=== PATIENT | male | born 1960 | race Caucasian/White ===

== ENCOUNTER 2017-12-11 13:49 | Emergency (ER) | payer OTHER ==
[2017-12-11] MEDS: IBUPROFEN 600 MG TAB PO (15:31)
== END 2017-12-11 16:27 | disposition home or self-care (01) ==
LOC: E/R 13:49 → FTE 16:27
DX: T16.1XXA Foreign body in right ear, initial encounter (principal); X58.XXXA Exposure to other specified factors, initial encounter; Y92.9 Unspecified place or not applicable
CPT/HCPCS: 69200; 93971; 99283-25

== ENCOUNTER 2018-04-02 11:45 | Emergency (ER) | payer OTHER ==
[2018-04-02] MEDS: OPHTHALMIC IRRIG SOLUTION 120 ML RIGHT EYE (12:23)
[2018-04-02] MEDS: FLUORESCEIN STRIP RIGHT EYE (12:24)
== END 2018-04-02 12:34 | disposition home or self-care (01) ==
LOC: FTE 11:45
DX: T54.91XA Toxic effect of unspecified corrosive substance, accidental (unintentional), initial encounter (principal)
CPT/HCPCS: 99282; Z7502

== ENCOUNTER 2018-04-14 11:03 | Emergency (ER) | payer OTHER ==
[2018-04-14 15:50] LABS: ADD MAN DIFF? NO
[2018-04-14 15:52] LABS: BASOPHILS % 0.8 % (0.0-2.0); EOSINOPHILS # 0.1 10^3/ul (0.0-0.5); EOSINOPHILS % 1.1 % (0.0-7.0); HEMATOCRIT 45.7 % (42.0-52.0); HEMOGLOBIN 15.1 g/dl (14.0-18.0); LYMPHOCYTES # 2.3 10^3/ul (0.8-2.9); MEAN CORPUSCULAR HEMOGLOBIN 30.1 pg (29.0-33.0); MEAN CORPUSCULAR VOLUME 91.2 fl (82.0-101.0); MEAN PLATELET VOLUME 11.1 fl (7.4-10.4); MONOCYTE # 0.4 10^3/ul (0.3-0.9); MONOCYTES % 8.1 % (0.0-11.0); NEUTROPHIL # 2.5 10^3/ul (1.6-7.5); NEUTROPHILS % 46.6 % (39.0-77.0); PLATELET COUNT 235 10^3/UL (140-415); RED BLOOD COUNT 5.01 10^6/ul (4.70-6.10); RED CELL DISTRIBUTION WIDTH 13.8 % (11.5-14.5)
[2018-04-14 15:52] LABS: WHITE BLOOD COUNT 5.3 10^3/ul (4.8-10.8)
[2018-04-14 16:01] LABS: INR 0.95; PARTIAL THROMBOPLASTIN TIME 27.9 Sec (25.0-35.0); PROTIME 12.8 Sec (11.9-14.9)
[2018-04-14 16:03] LABS: ALANINE AMINOTRANSFERASE 34 IU/L (13-69); ALBUMIN 4.4 g/dl (3.3-4.9); ALBUMIN/GLOBULIN RATIO 1.29; ALKALINE PHOSPHATASE 77 IU/L (42-121); ANION GAP 15 (8-16); ASPARTATE AMINO TRANSFERASE 30 IU/L (15-46); BILIRUBIN,INDIRECT 0.7 mg/dl (0-1.1); BILIRUBIN,TOTAL 0.7 mg/dl (0.2-1.3); BLOOD UREA NITROGEN 20 mg/dl (7-20); CALCIUM 9.3 mg/dl (8.4-10.2); CARBON DIOXIDE 28 mmol/L (21-31); CHLORIDE 103 mmol/L (97-110); CREATININE 0.87 mg/dl (0.61-1.24); GLUCOSE 113 mg/dl (70-220); LIPASE 119 U/L (23-300); POTASSIUM 4.5 mmol/L (3.5-5.1); SODIUM 141 mmol/L (135-144); TOTAL PROTEIN 7.8 g/dl (6.1-8.1)
[2018-04-14 16:14] LABS: TROPONIN-I < 0.010 ng/ml (0.000-0.120)
[2018-04-14] MEDS: ONDANSETRON 4 MG INJ IV (16:14)
[2018-04-14] MEDS: morphine 4 MG/ML VIAL IV (16:15)
[2018-04-14 16:55] LABS: ADD UMIC NO; UR AMORPHOUS CRYSTAL MANY /HPF (NONE SEEN); UR ASCORBIC ACID NEGATIVE (NEGATIVE); UR BACTERIA FEW /HPF (NONE SEEN); UR BILIRUBIN (Dip) NEGATIVE (NEGATIVE); UR BLOOD (Dip) NEGATIVE (NEGATIVE); UR CLARITY SLIGHTLY CLOUDY (CLEAR); UR COLOR YELLOW (YELLOW); UR GLUCOSE (Dip) NEGATIVE (NEGATIVE); UR KETONES (Dip) NEGATIVE (NEGATIVE); UR LEUKOCYTE ESTERASE (Dip) NEGATIVE Leu/ul (NEGATIVE); UR NITRITE (Dip) NEGATIVE (NEGATIVE); UR RBC 1 /HPF (0-5); UR TOTAL PROTEIN (Dip) NEGATIVE (NEGATIVE); UR UROBILINOGEN (Dip) NEGATIVE (NEGATIVE); UR WBC 1 /HPF (0-5)
== END 2018-04-15 06:45 | disposition home or self-care (01) ==
LOC: E/R 04-15 06:45
DX: K40.90 Unilateral inguinal hernia, without obstruction or gangrene, not specified as recurrent (principal)
CPT/HCPCS: 36415; 71045; 74176; 80053; 81001; 81003; 83690; 84484; 85025; 85610; 85730; 93005; 96374; 96375; 99285-25

== ENCOUNTER → 2018-04-14 23:31 | Emergency (ER) | payer SELFPAY, OTHER | END | disposition left against medical advice (07) | LOC: E/R 23:31 | DX: Z53.21 Procedure and treatment not carried out due to patient leaving prior to being seen by health care provider (principal) ==

== ENCOUNTER 2018-05-13 14:29 | Emergency (ER) | payer OTHER ==
[2018-05-13] MEDS: DIPHTH/TET/ACEL PERTUSS (ADULT) 0.5 ML VIAL IM* (17:13)
== END 2018-05-13 19:06 | disposition left against medical advice (07) ==
LOC: FTE 19:06
DX: S61.431A Puncture wound without foreign body of right hand, initial encounter (principal); W54.0XXA Bitten by dog, initial encounter; Y92.830 Public park as the place of occurrence of the external cause; Z23 Encounter for immunization
CPT/HCPCS: 73130; 73130-RT; 90471; 90715; 99283-25

== ENCOUNTER 2018-05-23 06:23 | Day surgery (SDC) | payer OTHER ==
[~2018-05-23 06:23] MED LIST: CEFAZOLIN 2 GM/50 ML (PMX) 50 ML IVPB
[2018-05-23] MEDS ORDERED: PROPOFOL 200 MG INJ (07:00)
[2018-05-23] MEDS ORDERED: ALBUTEROL 0.083% (NEB) 2.5 MG/3 ML AMP HHN (07:30)
[2018-05-23] MEDS ORDERED: FENTAnyl 50 MCG/ML VIAL IV ×3 (07:30)
[2018-05-23] MEDS ORDERED: HYDROmorphONE 1 MG/5 ML IV SYRINGE IV ×2 (07:30)
[2018-05-23] MEDS ORDERED: METOCLOPRAMIDE 10 MG INJ IV (07:30)
[2018-05-23] MEDS ORDERED: DIPHENHYDRAMINE 50 MG INJ IV (07:30)
[2018-05-23] MEDS ORDERED: MEPERIDINE 25 MG INJ IV (07:30)
[2018-05-23] MEDS: POLYMYXIN/BACITRACIN 1L IRRIG (07:36)
[2018-05-23] MEDS ORDERED: LIDOCAINE 100 MG SYRINGE (08:11)
[2018-05-23] MEDS ORDERED: SUCCINYLCHOLINE CHLORIDE 100 MG/5 ML SYG IV (08:11)
[2018-05-23] MEDS ORDERED: FENTAnyl 50 MCG/ML VIAL (08:11)
[2018-05-23] MEDS ORDERED: CEFAZOLIN 1 GM INJ (08:11)
[2018-05-23] MEDS ORDERED: SUGAMMADEX SODIUM 200 MG/2 ML VIAL IV (08:11)
[2018-05-23] MEDS ORDERED: ROCURONIUM 50 MG INJ (08:11)
[2018-05-23] MEDS ORDERED: ROPIVACAINE 0.5 % 30 ML VIAL (08:29)
[2018-05-23] MEDS: BUPIVACAINE 0.25%/EPI (SDV) 30 ML INJ (09:33)
[2018-05-23] MEDS ORDERED: ONDANSETRON 4 MG INJ IV (10:00)
[2018-05-23] MEDS ORDERED: morphine 2 MG INJ IV (10:00)
[2018-05-23] MEDS ORDERED: IBUPROFEN 600 MG TAB PO (10:00)
[2018-05-23] MEDS ORDERED: KETOROLAC 30 MG INJ IV (10:00)
[2018-05-23] MEDS ORDERED: HYDROCODONE/APAP (5/325) TAB PO ×2 (10:00)
[2018-05-23] MEDS: HYDROmorphONE 1 MG/5 ML IV SYRINGE IV (10:19)
[2018-05-23] MEDS: ONDANSETRON 4 MG INJ IV (10:19)
[2018-05-23] MEDS: SOD CHLORIDE 0.9% 1,000 ML IV (10:22)
== END 2018-05-23 12:13 | disposition home or self-care (01) ==
LOC: SDS 06:23
DX: K40.90 Unilateral inguinal hernia, without obstruction or gangrene, not specified as recurrent (principal)
CPT/HCPCS: 49505; 71045; 88302

== ENCOUNTER 2019-03-11 08:03 | Emergency (ER) | payer OTHER | END 2019-03-11 09:11 | disposition home or self-care (01) | LOC: FTE 08:03 | DX: S69.91XA Unspecified injury of right wrist, hand and finger(s), initial encounter (principal); I10 Essential (primary) hypertension; E11.9 Type 2 diabetes mellitus without complications; W01.0XXA Fall on same level from slipping, tripping and stumbling without subsequent striking against object, initial encounter; Y92.89 Other specified places as the place of occurrence of the external cause | CPT/HCPCS: 29125; 73110-RT; 99283-25 ==